=== PATIENT | male | born 2000 | race Caucasian/White ===

== ENCOUNTER 2021-05-27 02:42 | Emergency (ER) | payer BC, SELFPAY ==
[2021-05-27 02:42] VITALS: BP 138/87; PULSE 71; RESP 18; TEMP 36.6; O2SAT 99; BMI 36.1
[2021-05-27] MEDS: Tetracaine 0.5% Ophthalmic Bottle 1 DRP EACH EYE (02:51)
[2021-05-27] MEDS: Fluorescein 1 MG STRIP 1 STRIP EACH EYE (02:52)
--- NOTE | 2021-05-27 03:00 | EX.ED.VIS.EY ---
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 He states that as he was leaving work he began to feel like he had something in his eyes and is progressively worsened. He notes light sensitivity. He notes tearing and eye redness. He has a sensation that there is something in his eye. He has not wear contacts or glasses. PFSH PFSH no medical history Home Medications hydrocodone-acetaminophen 1 tab PO Q6H PRN PRN 3 Days #12 tablet 05/27/21 [Rx Last Taken Unknown] Allergy/AdvReac Type Severity Reaction Status Date / Time No Known Allergies Allergy Verified 05/27/21 02:46 Social History (Updated 05/27/21 @ 03:[address] Zeb David, DO) Smoking Status: Never smoker substance use type: does not use ROS ROS ED Constitutional Constitutional ED: Denies chills or weight loss Eyes Eyes: Reports blurry vision and other Details: Red eyes foreign body sensation light sensitivity ; Denies change in vision or diplopia ENT ENT ED: Denies ear pain, rhinorrhea or sore throat Cardiovascular Cardiovascular: Denies chest pain, orthopnea, palpitations or racing heartbeat Respiratory/Chest Respiratory/Chest: Denies cough, dyspnea or orthopnea Gastrointestinal Gastrointestinal: Denies abdominal pain, diarrhea, nausea or vomiting Genitourinary Genitourinary ED: Denies dysuria, hematuria or urinary frequency Musculoskeletal Musculoskeletal: Denies arthralgias or myalgias Integumentary Denies abscess or rash Neurologic Neurologic: Denies headache(s) or weakness Psychiatric Psychiatric: Denies anxiety, depression, suicidal ideation or suicidal thoughts Endocrine Endocrinology: Denies polydipsia, polyphagia or polyuria Allergic/Immunologic Allergic/Immunologic ED: Denies mouth swelling, tongue swelling or urticaria EXAM Physical Exam Const Vital Signs: 05/27/21 02:42 Temperature 97.9 F Temperature Source Temporal Pulse Rate 71 Respiratory Rate 18 Blood Pressure 138/87 H Blood Pressure Mean 104 Pulse Ox 99 Oxygen Delivery Method Room Air Positive well nourished and well developed General Appearance ED: well developed HEENT Reports normocephalic, head/scalp atraumatic and moist mucous membranes Eyes PERRL and EOMs intact bilaterally Eyes Narrative: Both the right and the left eye are injected with tearing. Light sensitivity. With eversion of the eyelids I do not see any obvious foreign bodies. There appears to have superficial punctate keratitis on corneal staining. Neck no lymphadenopathy, supple and no JVD Resp normal respiratory effort and clear to auscultation bilaterally Cardio regular rate, regular rhythm and no murmurs GI normal to inspection, nondistended, normoactive bowel sounds and non-tender Palpation: soft Back/Spine no CVA tenderness and normal ROM Extremity normal to inspection General Extremety ED: Negative for edema General Extremity: Negative for edema Neuro oriented x3 and CN's II-XII intact bilaterally Sensorium / Orientation: alert Motor Exam: strength 5/5 throughout Psych mental status grossly normal Mood & Affect: Negative for depressed or tearful Skin no rashes or lesions noted and no wounds MDM MDM MDM Narrative Medical decision making narrative: Tetracaine and fluorescein was used to evaluate the eye under blue light conditions. We will use gentamicin ophthalmic ointment and [place] for pain. We will dilate the eyes. I would recommend sunglasses and follow-up with ophthalmology. Discharge Plan Triage Chief Complaint: Eye Problem ED Provider: Zeb David Dx/Rx/DC Orders Clinical Impression: Superficial punctate keratitis of both eyes Instructions: Ultraviolet Keratitis Prescriptions: New hydrocodone-acetaminophen [hydrocodone-acetaminophen] 1 TABLET tablet 1 tab PO Q6H PRN PRN (Reason: Pain) 3 Days Qty: 12 RF: 0 Primary Care Provider: Delmer Teran Referrals: Delmer Teran MD [Primary Care Provider] - Delmer Harper MD [STAFF PHYSICIAN] - 2 Days for wound check Activity Restrictions/Additional Instructions: Apply the ointment 5 times per day. Pain medication as needed. Would recommend sunglasses. Disposition Disposition: Home, Self Care
[2021-05-27] MEDS: HYDROcodone Bitartrate/Apap 5/325 Tablet PO (03:09)
[2021-05-27] MEDS: Cyclopentolate 1% 2 ML Bottle 2 DRP EACH EYE (03:17)
== END 2021-05-27 03:38 | disposition home or self-care (01) ==
PROVIDERS: Emergency Provider Emergency Medicine; PCP Family Medicine
DX: H16.143 Punctate keratitis, bilateral (principal)
CPT/HCPCS: 99283